=== PATIENT | male | born 1960 | race Caucasian/White ===

== ENCOUNTER 2017-02-04 12:30 | Emergency (ER) | payer SELFPAY ==
[2017-02-04] MEDS ORDERED: IOHEXOL 350 MG/ML 10 ML VIAL (for RAD DIAG) IVCONTRAST ONE (12:31)
[2017-02-04 12:37] VITALS: O2SAT 98
[2017-02-04] MEDS ORDERED: LACTATED RINGER'S 1000 ML INJ 1,000 ML IV SCH (12:37)
[2017-02-04] MEDS ORDERED: ONDANSETRON HCL 4 MG/2 ML VIAL IV PUSH ONE (12:45)
--- NOTE | 2017-02-04 12:50 | PD ---
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, FELL DOWN AND LANDED ONTO [place], NO LOC, MAIN COMPLAINT IS LOW BACK PAIN, NONRAD, 01/14, ABLE TO CONTROL BLADDER/URINATION THUS FAR PFSH Social History Tobacco Use: No Allergies-Medications (Allergen,Severity, Reaction): Coded Allergies: codeine (Verified Allergy, Unknown, 02/04/17) Reported Meds & Prescriptions Reported Meds & Active Scripts Active Carmen-Colace (Sennosides-Docusate Sodium) 8.6-50 Mg Tab 1 Tab PO BID PRN Flexeril (Cyclobenzaprine HCl) 10 Mg Tab 10 Mg PO TID Percocet (Oxycodone-Acetaminophen) 10-325 mg Tab 1 Tab PO Q4H PRN Review of Systems Except as stated in HPI: all other systems reviewed are Neg Musculoskeletal: Positive: Pain Physical Exam Narrative GENERAL: SKIN: Warm and dry. HEAD: Atraumatic. Normocephalic. EYES: Pupils equal and round. No scleral icterus. No injection or drainage. ENT: No nasal bleeding or discharge. Mucous membranes pink and moist. NECK: Trachea midline. No JVD. CARDIOVASCULAR: Regular rate and rhythm. RESPIRATORY: No accessory muscle use. Clear to auscultation. Breath sounds equal bilaterally. GASTROINTESTINAL: Abdomen soft, non-tender, nondistended. MUSCULOSKELETAL: Extremities without clubbing, cyanosis, or edema. No obvious deformities. TTP ALONG UPPER LUMBAR REGION WITH PALPABLE CREPITUS NEUROLOGICAL: Awake and alert. No obvious cranial nerve deficits. Motor grossly within normal limits. Five out of 5 muscle strength in the arms and legs. Normal speech. PSYCHIATRIC: Appropriate mood and affect; insight and judgment normal. Data Data Last Documented VS Vital Signs Date Time Temp Pulse Resp B/P (MAP) Pulse Ox O2 Delivery O2 Flow Rate FiO2 02/04/17 16:28 88 18 150/91 (110) 94 02/04/17 12:37 2.00 Orders Orders I-Stat Profile (02/04/17 12:37) I-Stat Creatinine (02/04/17 12:37) Complete Blood Count With Diff (02/04/17 12:37) Prothrombin Time / Inr (Pt) (02/04/17 12:37) Act Partial Throm Time (Ptt) (02/04/17 12:37) Type And Screen (02/04/17 12:37) Alcohol (Ethanol) (02/04/17 12:37) Chest, Single Ap (02/04/17 12:37) Ct Brain W/O Iv Contrast(Rout) (02/04/17 12:37) Ct Cerv Spine W/O Contrast (02/04/17 12:37) Ct Abd/Pel W Iv Contrast(Rout) (02/04/17 12:37) Ct Thorax/ Chest W Iv Contrast (02/04/17 12:37) Ct Thor Spine W/O Contrast (02/04/17 12:37) Ct Lumb Spine W/O Contrast (02/04/17 12:37) Iv Access Insert/Monitor (02/04/17 12:37) Ecg Monitoring (02/04/17 12:37) Oximetry (02/04/17 12:37) Oxygen Administration (02/04/17 12:37) Lactated Ringer's 1000 Ml Inj (Lr 1000 M (02/04/17 12:37) Ondansetron Inj (Zofran Inj) (02/04/17 12:45) Hydromorphone Pf Inj (Dilaudid Pf Inj) (02/04/17 13:00) Iohexol 350 Inj (Omnipaque 350 Inj) (02/04/17 12:31) Abdomen, Kub Only (02/04/17 ) Hydromorphone Pf Inj (Dilaudid Pf Inj) (02/04/17 14:00) Lorazepam Inj (Ativan Inj) (02/04/17 14:00) TLSO (02/04/17 ) Brace Lso-Orthosis (02/04/17 ) Brace Thoracic Ext (02/04/17 ) Trauma Office Use Only (02/04/17 05:04) Labs Laboratory Tests Test 02/04/17 12:35 02/05/17 21:18 White Blood Count 15.2 TH/MM3 Red Blood Count 4.91 MIL/MM3 Hemoglobin 15.4 GM/DL Bedside Hemoglobin 16.0 G/DL Hematocrit 44.9 % Bedside Hematocrit 47.0 % Mean Corpuscular Volume 91.4 FL Mean Corpuscular Hemoglobin 31.4 PG Mean Corpuscular Hemoglobin Concent 34.4 % Red Cell Distribution Width 13.2 % Platelet Count 314 TH/MM3 Mean Platelet Volume 10.5 FL Neutrophils (%) (Auto) 76.4 % Lymphocytes (%) (Auto) 14.6 % Monocytes (%) (Auto) 5.9 % Eosinophils (%) (Auto) 1.6 % Basophils (%) (Auto) 1.5 % Neutrophils # (Auto) 11.6 TH/MM3 Lymphocytes # (Auto) 2.2 TH/MM3 Monocytes # (Auto) 0.9 TH/MM3 Eosinophils # (Auto) 0.2 TH/MM3 Basophils # (Auto) 0.2 TH/MM3 CBC Comment AUTO DIFF Differential Comment AUTO DIFF CONFIRMED Prothrombin Time 10.9 SEC Prothromb Time International Ratio 1.0 RATIO Activated Partial Thromboplast Time 26.5 SEC Bedside Sodium 137 MMOL/L Bedside Potassium 5.9 MMOL/L Bedside Chloride 103 MMOL/L Bedside Blood Urea Nitrogen 20 MG/DL Bedside Creatinine 0.8 MG/DL Bedside Glucose 100 MG/DL Ethyl Alcohol Level LESS THAN 3 MG/DL Lab Scanned Report Lab Reports - Other [id number] [facility] Medical Decision Making Medical Screen Exam Complete: Yes Emergency Medical Condition: Yes Medical Record Reviewed: Yes Differential Diagnosis PTX V MULTIPLE FX V SOLID GI ORGAN INJURY V ICH Narrative Course PATIENT ARRIVED A TRAUMA ALERT, EVALUATED THOROUGHLY WITH CXR,PELVIS XRAY WELL CT HEAD,CT CHEST, CT ABD/PELVIS WELL CT THORACIC/LUMBAR. NO SOLID ORGAN INJURY, ALL NEG FINDINGS EXCEPT FOR T12 COMPRESSION FRACTURE with TLSO brace. Diagnosis Primary Impression: T12 compression fracture Referrals: Tony Quinones MD FOR FURTHER EVALUATION AND CARE OF YOUR T12 COMPRESSION FRACTURE Patient Instructions: General Instructions, Vertebral Compression Fracture (DC) Scripts Sennosides-Docusate Sodium (Carmen-Colace) 8.6-50 Mg Tab 1 TAB PO BID Y for Constipation, #60 TAB 0 Refills Prov: Magno Junior MD 02/04/17 Cyclobenzaprine (Flexeril) 10 Mg Tab 10 MG PO TID for Muscle Spasm, #30 TAB 0 Refills Prov: Magno Junior MD 02/04/17 Oxycodone-Acetaminophen (Percocet) 10-325 mg Tab 1 TAB PO Q4H Y for PAIN, #30 TAB 0 Refills Prov: Magno Junior MD 02/04/17 Disposition: 01 DISCHARGE HOME Condition: Stable Magno Junior MD Feb 04, 2017 12:50
[2017-02-04 12:54] LABS: I-STAT POTASSIUM 5.9 MMOL/L (3.5-4.9); I-STAT SODIUM 137 MMOL/L (138-146)
[2017-02-04 12:58] LABS: AUTOMATED NEUTROPHIL # 11.6 TH/MM3 (1.8-7.7); BASOPHIL # 0.2 TH/MM3 (0-0.2); BASOPHIL % 1.5 % (0.0-2.0); EOSINOPHIL # 0.2 TH/MM3 (0-0.4); EOSINOPHIL % 1.6 % (0.0-4.0); HEMATOCRIT 44.9 % (39.0-51.0); LYMPH % 14.6 % (9.0-44.0); LYMPHOCYTE # 2.2 TH/MM3 (1.0-4.8); MEAN CELL VOLUME 91.4 FL (80.0-100.0); MEAN CORPUSCULAR HEMOGLOBIN 31.4 PG (27.0-34.0); MEAN CORPUSCULAR HGB CONC 34.4 % (32.0-36.0); MONO % 5.9 % (0.0-8.0); NEUT % 76.4 % (16.0-70.0); PLATELET COUNT 314 TH/MM3 (150-450); RED BLOOD COUNT 4.91 MIL/MM3 (4.50-5.90); RED CELL DISTRIBUTION WIDTH 13.2 % (11.6-17.2); WHITE BLOOD COUNT 15.2 TH/MM3 (4.0-11.0)
[2017-02-04 13:00] LABS: HEMO FLAGS AUTO DIFF
[2017-02-04] MEDS ORDERED: HYDROmorphone HCL PF 1 MG/ML VIAL IV PUSH ONE ×2 (13:00→14:00)
--- NOTE | 2017-02-04 13:01 | RADRPT ---
EXAM DATE/TIME: 02/04/2017 12:28 [facility] COMPARISON: No previous studies available for comparison. INDICATIONS : Trauma alert- Fall. MEDICAL HISTORY : None. SURGICAL HISTORY : None. ENCOUNTER: Initial ACUITY: 1 day PAIN SCORE: Non-responsive. LOCATION: Bilateral chest FINDINGS: A single view of the chest demonstrates the lungs to be symmetrically aerated without evidence of mas s, infiltrate or effusion. The cardiomediastinal contours are unremarkable. Osseous structures are intact. CONCLUSION: Normal examination. Jose Stevens MD on February 04, 2017 at 12:59 Board Certified Radiologist. This report was verified electronically.
--- NOTE | 2017-02-04 13:04 | RADRPT ---
EXAM DATE/TIME: 02/04/2017 12:48 [facility] COMPARISON: No previous studies available for comparison. INDICATIONS : Trauma alert, fall from roof today. RADIATION DOSE: 49.36 CTDIvol (mGy) MEDICAL HISTORY : Non-responsive. SURGICAL HISTORY : Non-responsive. ENCOUNTER: Initial ACUITY: 1 day PAIN SCALE: Non-responsive LOCATION: Bilateral head TECHNIQUE: Multiple contiguous axial images were obtained of the head. Using automated exposure control and adj ustment of the mA and/or kV according to patient size, radiation dose was kept as low as reasonably a chievable to obtain optimal diagnostic quality images. DICOM format image data is available electro nically for review and comparison. FINDINGS: CEREBRUM: The ventricles are normal for age. No evidence of midline shift, mass lesion, hemorrhage or acute in farction. No extra-axial fluid collections are seen. POSTERIOR FOSSA: The cerebellum and brainstem are intact. There is an increased density anterior to the chastity I suspect is related to volume averaging or the basilar vessel. The 4th ventricle is midline. The cerebellop ontine angle is unremarkable. EXTRACRANIAL: The visualized portion of the orbits is intact. SKULL: The calvaria is intact. No evidence of skull fracture. Diffuse sinus disease CONCLUSION: Normal examination other than sinus disease. Jose Stevens MD on February 04, 2017 at 13:02 Board Certified Radiologist. This report was verified electronically.
[2017-02-04 13:05] LABS: PROTHROMBIN TIME - PATIENT 10.9 SEC (9.8-11.6)
[2017-02-04 13:08] LABS: APTT (PATIENT) 26.5 SEC (24.3-30.1)
--- NOTE | 2017-02-04 13:08 | RADRPT ---
EXAM DATE/TIME: 02/04/2017 12:48 [facility] COMPARISON: No previous studies available for comparison. INDICATIONS : Trauma alert, fall from roof today. RADIATION DOSE: 21.86 CTDIvol (mGy) MEDICAL HISTORY : Non-responsive. SURGICAL HISTORY : Non-responsive. ENCOUNTER: Initial ACUITY: 1 day PAIN SCALE: Non-responsive LOCATION: Bilateral neck TECHNIQUE: Volumetric scanning of the cervical spine was performed. Multiplanar reconstructions in the sagittal, coronal and oblique axial planes were performed. Using automated exposure control and adjustment o f the mA and/or kV according to patient size, radiation dose was kept as low as reasonably achievable to obtain optimal diagnostic quality images. DICOM format image data is available electronically f or review and comparison. FINDINGS: VERTEBRAE: Normal vertebral body height. ALIGNMENT: No evidence of subluxation. C2-C3: The bony spinal canal is normal in size. No evidence of disc bulge or herniation. The neural forami na are bilaterally patent. C3-C4: The bony spinal canal is normal in size. No evidence of disc bulge or herniation. The neural forami na are bilaterally patent. C4-C5: The bony spinal canal is normal in size. No evidence of disc bulge or herniation. The neural forami na are bilaterally patent. C5-C6: The bony spinal canal is normal in size. No evidence of disc bulge or herniation. The neural forami na are bilaterally patent. C6-C7: The bony spinal canal is normal in size. No evidence of disc bulge or herniation. The neural forami na are bilaterally patent. C7-T1: The bony spinal canal is normal in size. No evidence of disc bulge or herniation. The neural forami na are bilaterally patent. CONCLUSION: Normal examination. Jose Stevens MD on February 04, 2017 at 13:06 Board Certified Radiologist. This report was verified electronically.
--- NOTE | 2017-02-04 13:18 | RADRPT ---
EXAM DATE/TIME: 02/04/2017 12:54 [facility] COMPARISON: No previous studies available for comparison. INDICATIONS : Trauma alert, fall from roof today. IV CONTRAST: 97 cc Omnipaque 350 (iohexol) IV ; Cumulative dose for multiple exams. RADIATION DOSE: 12.73 CTDIvol (mGy) ; Combined studies - Thorax/Abdomen/Pelvis MEDICAL HISTORY : Non-responsive. SURGICAL HISTORY : Non-responsive. ENCOUNTER: Initial ACUITY: 1 day PAIN SCALE: Non-responsive LOCATION: Bilateral chest TECHNIQUE: Volumetric scanning of the chest was performed. Using automated exposure control and adjustment of t he mA and/or kV according to patient size, radiation dose was kept as low as reasonably achievable to obtain optimal diagnostic quality images. DICOM format image data is available electronically for review and comparison. Follow-up recommendations for detected pulmonary nodules are based at a minimum on nodule size and pa tient risk factors according to Fleischner Society Guidelines. FINDINGS: LUNGS: There is no consolidation or pneumothorax. No concerning pulmonary nodule is visualized. Minimal bib asilar atelectasis PLEURA: There is no pleural thickening or pleural effusion. MEDIASTINUM: The heart and great vessels demonstrate no acute abnormality. There is no mediastinal or hilar lymph adenopathy. AXILLAE: Within normal limits. No lymphadenopathy. SKELETAL: Within normal limits for patient age. MISCELLANEOUS: The visualized upper abdominal organs demonstrate no acute abnormality. CONCLUSION: Normal examination. Jose Stevens MD on February 04, 2017 at 13:16 Board Certified Radiologist. This report was verified electronically.
--- NOTE | 2017-02-04 13:20 | RADRPT ---
EXAM DATE/TIME: 02/04/2017 12:54 [facility] COMPARISON: No previous studies available for comparison. INDICATIONS : Trauma alert, fall from roof today. IV CONTRAST: 97 cc Omnipaque 350 (iohexol) IV ; Cumulative dose for multiple exams. ORAL CONTRAST: No oral contrast ingested. RADIATION DOSE: 12.73 CTDIvol (mGy) ; Combined studies - Thorax/Abdomen/Pelvis MEDICAL HISTORY : Non-responsive. SURGICAL HISTORY : Non-responsive. ENCOUNTER: Initial ACUITY: 1 day PAIN SCALE: Non-responsive LOCATION: Bilateral abdomen TECHNIQUE: Volumetric scanning of the abdomen and pelvis was performed. Using automated exposure control and ad justment of the mA and/or kV according to patient size, radiation dose was kept as low as reasonably achievable to obtain optimal diagnostic quality images. DICOM format image data is available electro nically for review and comparison. FINDINGS: LOWER LUNGS: The visualized lower lungs are clear. LIVER: Homogeneous density without lesion. There is no dilation of the biliary tree. No calcified gallston es. SPLEEN: Normal size without lesion. PANCREAS: Within normal limits. KIDNEYS: Normal in size and shape. There is no mass, stone or hydronephrosis. ADRENAL GLANDS: Within normal limits. VASCULAR: There is no aortic aneurysm. BOWEL/MESENTERY: The stomach, small bowel, and colon demonstrate no acute abnormality. There is no free intraperitone al air or fluid. ABDOMINAL WALL: Within normal limits. RETROPERITONEUM: There is no lymphadenopathy. BLADDER: No wall thickening or mass. REPRODUCTIVE: Within normal limits. INGUINAL: There is no lymphadenopathy or hernia. MUSCULOSKELETAL: Compression fracture of T12 CONCLUSION: Unremarkable CT scan abdomen and pelvis except for a compression deformity of T12. Jose Stevens MD on February 04, 2017 at 13:18 Board Certified Radiologist. This report was verified electronically.
--- NOTE | 2017-02-04 13:28 | RADRPT ---
EXAM DATE/TIME: 02/04/2017 12:54 [facility] COMPARISON: No previous studies available for comparison. INDICATIONS : Trauma alert, fall from roof today. RADIATION DOSE: ; Reconstructed from previous dataset, no dose MEDICAL HISTORY : Non-responsive. SURGICAL HISTORY : Non-responsive. ENCOUNTER: Initial ACUITY: 1 day PAIN SCALE: Non-responsive LOCATION: Bilateral lower back TECHNIQUE: Volumetric scanning of the lumbar spine was performed. Multiplanar reconstructions in the sagittal, coronal and oblique axial planes were performed. Using automated exposure control and adjustment of the mA and/or kV according to patient size, radiation dose was kept as low as reasonably achievable t o obtain optimal diagnostic quality images. DICOM format image data is available electronically for review and comparison. FINDINGS: VERTEBRAE: Normal vertebral body height except for compression deformity of T12. There multiple comminuted fragm ents involving the anterior two thirds of the vertebral body. It does not involve the posterior eleme nts or the bony canal. ALIGNMENT: Slight retrolisthesis of L5 I suspect is related to degenerative facet disease. T12-L1: The thecal sac has a normal diameter. No evidence of disc bulge or protrusion. The neural foramina are patent bilaterally. L1-L2: The thecal sac has a normal diameter. No evidence of disc bulge or protrusion. The neural foramina are patent bilaterally. L2-L3: The thecal sac has a normal diameter. No evidence of disc bulge or protrusion. The neural foramina are patent bilaterally. L3-L4: The thecal sac has a normal diameter. No evidence of disc bulge or protrusion. The neural foramina are patent bilaterally. L4-L5: The thecal sac has a normal diameter. No evidence of disc bulge or protrusion. The neural foramina are patent bilaterally. Degenerative facet disease bilaterally L5-S1: The thecal sac has a normal diameter. No evidence of disc bulge or protrusion. The neural foramina are patent bilaterally. CONCLUSION: Compression deformity of T12 anteriorly. Multiple fragments normally into two thirds of the T12 verte bral body. Lumbar spine is otherwise unremarkable except for chronic retrolisthesis of L5 secondary to degenerat barbara facet disease. Jose Stevens MD on February 04, 2017 at 13:24 Board Certified Radiologist. This report was verified electronically.
[2017-02-04 13:29] LABS: ALCOHOL LESS THAN 3 MG/DL (0-5)
[2017-02-04 13:33] LABS: SCAN/DIFF AUTO DIFF CONFIRMED
--- NOTE | 2017-02-04 13:55 | RADRPT ---
EXAM DATE/TIME: 02/04/2017 12:28 [facility] COMPARISON: No previous studies available for comparison. INDICATIONS : Trauma alert, Fall MEDICAL HISTORY : None. SURGICAL HISTORY : None. ENCOUNTER: Initial ACUITY: 1 day PAIN SCORE: 8/10 LOCATION: Bilateral Abdomen FINDINGS: Supine view of the abdomen was performed. The abdominal bowel gas pattern is normal. No abnormal ma sses, calcifications, or organomegaly is seen. The osseous structures are unremarkable. CONCLUSION: Normal examination. Known T12 compression fracture. Jose Stevens MD on February 04, 2017 at 13:53 Board Certified Radiologist. This report was verified electronically.
[2017-02-04] MEDS ORDERED: LORazepam 2 MG/ML VIAL IV PUSH ONE (14:00)
[2017-02-04] MEDS ORDERED: PERC10TA27 PO (14:02)
[2017-02-04] MEDS ORDERED: CYCL1TAB29 PO (14:02)
[2017-02-04] MEDS ORDERED: PERI8.6T PO (14:02)
--- NOTE | 2017-02-04 14:22 | RADRPT ---
EXAM DATE/TIME: 02/04/2017 12:54 [facility] COMPARISON: No previous studies available for comparison. INDICATIONS : Trauma alert, fall from roof today. RADIATION DOSE: Reconstructed from previous dataset, no dose MEDICAL HISTORY : Non-responsive. SURGICAL HISTORY : Non-responsive. ENCOUNTER: Initial ACUITY: 1 day PAIN SCALE: Non-responsive LOCATION: Bilateral upper back TECHNIQUE: Volumetric scanning of the thoracic spine was performed. Multiplanar reconstructions in the sagittal, coronal and oblique axial planes were performed. Using automated exposure control a nd adjustment of the mA and/or kV according to patient size, radiation dose was kept as low as reason ably achievable to obtain optimal diagnostic quality images. DICOM format image data is available e lectronically for review and comparison. FINDINGS: CT scan of the thoracic spine demonstrates there is a mid-thoracic leftward scoliosis centered around the T8-T9 level. There are prominent right-sided osteophytes at that level. There is a compression deformity of the T12 vertebral body. It has lost one-third of its original he ight with a comminuted fracture. The fracture fragments do not extend into the posterior third of th e vertebral body. They do not involve the bony canal. There is no disc herniation or protrusion. T here is a small paravertebral hematoma. The rest of the thoracic vertebral bodies are unremarkable. No other fracture is identified. Visualized ribs are intact. CONCLUSION: Compression deformity of T12 involving the anterior two-thirds of the vertebral body. There is some loss of height but I don't see any significant bony column involvement posteriorly. No other fractur es are seen. Jose Stevens MD on February 04, 2017 at 14:13 Board Certified Radiologist. This report was verified electronically.
[2017-02-04 15:00] VITALS: RESP 16
[2017-02-04 16:28] VITALS: BP 150/91
== END 2017-02-04 16:55 | disposition home or self-care (01) ==
LOC: NEPE 12:30
DX: S22.080A Wedge compression fracture of T11-T12 vertebra, initial encounter for closed fracture (principal); W13.2XXA Fall from, out of or through roof, initial encounter; Y93.9 Activity, unspecified; Y92.008 Other place in unspecified non-institutional (private) residence as the place of occurrence of the external cause
CPT/HCPCS: 70450; 71010; 71260; 72125; 72128; 72131; 74000; 74177; 80307; 82435; 82565; 82947; 84132; 84295; 84520; 85025; 85610; 85730; 86850; 86900; 86901; 96374; 96375; 96376; 99285; 99291; J1170; J2060; L0200; L0484; Q9967; G0390

== ENCOUNTER → 2017-03-05 | Outpatient (CLI) | payer OTHER ==
[~2017-03-05] MED LIST: OXYC-395 PO; PERC10TA27 PO
== END ==
LOC: CPRE 11:11
PROVIDERS: ATTEND Neurological Surgery
DX: Z00.00 Encounter for general adult medical examination without abnormal findings (principal)

== ENCOUNTER → 2017-03-09 | Day surgery (SDC) | payer OTHER ==
[~2017-03-09] VITALS: Ht 182.9 cm; Wt 75.1 kg
[~2017-03-09] MED LIST changes: +*ONDANSETRON 4 MG VIAL PERIprocedural Use ONLY ONE; +*morphine SULFATE 8 MG/ML PERIprocedure ONLY ONE; +BUPIVACAINE/EPINEPHRINE 0.5% 50 ML VIAL ONE; +CHLORHEXIDINE GLUCONATE 2 % 1 PACK (2 CLOTHS) TOPICAL PRN; +DO NOT ADM ANY ANTICOAGULANT DRUGS PRN; +GLYCOPYRROLATE 1 MG/5 ML SYRINGE IV PUSH ONE; +INSULIN HUMAN REGULAR 1,000 UNITS/10 ML VIAL SQ PRN; +LACTATED RINGER'S 1000 ML INJ 1,000 ML IV SCH; +LACTATED RINGER'S 1000 ML IV PRN; +LIDOCAINE HCL 1% PF 5 ML SYRINGE OTHER ONE; +METOPROLOL TARTRATE 25 MG TAB PO PRN; +NEOSTIGMINE 3 MG/3 ML SYR IV ONE; +ONDANSETRON HCL 4 MG/2 ML VIAL IV PUSH ONE; +PHENYLEPH/NS 1000 MCG/10 ML SYR IV ONE; +POVIDONE IODINE 5% (ANTISEPSIS KIT) 4 APPLICATIONS EACH NARE PRN; +PROPOFOL 200 MG/20 ML AMP IV ONE; +ROCURONIUM INJ 50 MG/5 ML SYRINGE IV PUSH ONE; +SODIUM CHLOR 0.9% 1000 ML INJ 1,000 ML IV SCH; +SODIUM CHLORID 0.9% 500 ML IV PRN; +VANCOMYCIN 1,000 MG/NS 250 ML IV SCH
--- NOTE | 2017-03-09 09:46 | PD.OP ---
Jeremiah Whitten, Operative Report Date of Surgery: Mar 09, 2017 Preoperative Diagnosis: T12 vertebral body compression fracture with intractable low back pain Postoperative Diagnosis: Same Procedure: Thoracic T12 vertebral body kyphoplasty Anesthesia: Gen. endotracheal Surgeon: Frederic Ledbetter M.D. Fight Manager(s): None Operation and Findings: Following administration of a general endotracheal anesthesia patient was placed in the prone position on chest rolls and Erich table and all pressure points adequate padded. IV antibiotics were administered intravenously and the thoracolumbar area posteriorly prepped with a Betadine solution and painted and draped in the usual sterile fashion. Using AP and lateral arthroscopy guidance the stab incision sites were made at the T12 level overlying the pedicles bilaterally after infiltrating the skin was 0.5% Marcaine. The Jamshidi needles were then passed into the vertebral body to the pedicles on both sides and the hand-held drill trajectory created. The drills were then removed and then the balloons were passed into the vertebral body through both sides and dilated to create a cavity and restore vertebral body height. Subsequently the balloons were removed and the cavity packed with the bone cement 5 cc total. The vertebral body bone fragments also sent for pathology. The guide was then removed and Steri-Strips applied at the puncture wounds along with a sterile dressing. He was then turned in spine position, extubated and taken to the recovery room. There were no intraoperative medications and all sponge and needle count was correct at the end the procedure. Estimated blood loss less than 5 cc. Frederic Ledbetter MD Mar 09, 2017 09:46
[2017-03-09 11:07] VITALS: BP 165/89; PULSE 70; RESP 16; TEMP 98.8; O2SAT 100
--- NOTE | 2017-03-09 14:56 | RADRPT ---
EXAM DATE/TIME: 03/09/2017 09:06 [facility] COMPARISON: No previous studies available for comparison. INDICATIONS : T12 Kyphoplasty. MEDICAL HISTORY : Diverticulitis. Smoker. SURGICAL HISTORY : None. ENCOUNTER: Subsequent ACUITY: 1 month PAIN SCORE: 10/10 LOCATION: Thoracic spine. FINDINGS: There is evidence of previous kyphoplasty at T12. No cement extravasation is seen. CONCLUSION: 1. Postsurgical changes as above. Morteza Harvey MD on March 09, 2017 at 14:54 Board Certified Radiologist. This report was verified electronically.
== END | disposition home or self-care (01) ==
LOC: HSDC 05:58
PROVIDERS: ATTEND Neurological Surgery
DX: S22.089A Unspecified fracture of T11-T12 vertebra, initial encounter for closed fracture (principal)
CPT/HCPCS: 01936; 22513; 72070; 88307; 88311; J2270; J2370; J2405; J2710; J3010; J3370; J7050; J7120